=== PATIENT | female | born 2000 | race Caucasian/White ===

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

== ENCOUNTER 2021-10-13 14:19 | Inpatient (IN) | payer OTHER ==
[~2021-10-13] VITALS: Ht 175.3 cm; Wt 90.7 kg
--- NOTE | 2021-10-14 10:24 | PR ---
[facility] [address] [facility] [address] [place], [place] [address] Signed Progress Notes IP Datetime Report Generated by CPN: 10/14/2021 10:24 PROGRESS NOTES: [id number] Impression: Normal Progression of Labor Procedures: Artificial ROM Plan: Continue Present Management; Anticipate Vaginal Delivery VITAL SIGNS: [id number] Vital Signs: Reviewed; Within Normal Limits EXAM: [id number] Dilatation: 2.0 Effacement: 90 Station: -2 Contractions: irregular MEMBRANES: [id number] Membranes Status: Ruptured Comments: Tolerating contractions well using tub. PIH Panel normal and BP normal. Continue monitoring. FETUS A: [id number] FHR Baseline: 150 Variability: Moderate 6-25bpm Accelerations: 10X10 Decelerations: None FHR Category: Category I Presentation: Vertex FETUS B: [id number] Signing Physician: June Silvestre MD Copies: ~ *Electronically Signed* 10/14/21 [facility] JUNE SILVESTRE MD PATIENT NAME: YANY CAVAZOS PROGRESS NOTE DATE OF : 01 PHYSICIAN: JUNE SILVESTRE MD RPT #: [id number] REPORT IS CONFIDENTIAL AND NOT TO BE RELEASED WITHOUT AUTHORIZATION
--- NOTE | 2021-10-14 13:27 | PR ---
[facility] [address] [facility] [place], [place] [address] Signed Progress Notes IP Datetime Report Generated by CPN: 10/14/2021 13:27 PROGRESS NOTES: [id number] Impression: Normal Progression of Labor Procedures: Artificial ROM Plan: Continue Present Management; Anticipate Vaginal Delivery VITAL SIGNS: [id number] Vital Signs: Reviewed; Within Normal Limits EXAM: [id number] Dilatation: 4.0 Effacement: 90 Station: -2 Contractions: irregular MEMBRANES: [id number] Membranes Status: Ruptured Comments: Comfortable with Epidural Will continue monitoring. FETUS A: [id number] FHR Baseline: 150 Variability: Moderate 6-25bpm Accelerations: 10X10 Decelerations: None FHR Category: Category I Presentation: Vertex FETUS B: [id number] Signing Physician: June Silvestre MD Copies: ~ *Electronically Signed* 10/14/21 1327 JUNE SILVESTRE MD PATIENT NAME: YANY CAVAZOS PROGRESS NOTE DATE OF : 01 PHYSICIAN: JUNE SILVESTRE MD RPT #: [id number] REPORT IS CONFIDENTIAL AND NOT TO BE RELEASED WITHOUT AUTHORIZATION
--- NOTE | 2021-10-15 09:55 | PR ---
[facility] [address] [facility] [place] [address] Signed PP Progress Notes Datetime Report Generated by CPN: 10/15/2021 09:54 SUBJECTIVE: [id number] Pain: Within Normal Limits Nausea/Vomiting: Denies Vital Signs: [id number] Vital Signs: Reviewed; Within Normal Limits Notable Details: PP Hgb/Hct = 8.9/26.6 Abdomen/Uterus: Normal Lochia: Normal Extremities: Normal IMPRESSION/PLAN/PROCEDURES: [id number] Impression: Normal Progression Other Impression: PP Anemia Plan: Continue Present Management Procedures: None Progress Notes: Doing well, still some perineal pain. Bleeding slightly above average, but asymptomatic. Will continue monitoring Signing Physician: June Silvestre MD Copies: ~ *Electronically Signed* 10/15/21 0954 JUNE SILVESTRE MD PATIENT NAME: YANY CAVAZOS PROGRESS NOTE DATE OF : 01 PHYSICIAN: JUNE SILVESTRE MD RPT #: [id number] REPORT IS CONFIDENTIAL AND NOT TO BE RELEASED WITHOUT AUTHORIZATION
--- NOTE | 2021-10-16 12:26 | PR ---
[facility] [address] [place], [place] [address] Signed PP Progress Notes Datetime Report Generated by CPN: 10/16/2021 12:26 SUBJECTIVE: [id number] Pain: Within Normal Limits Nausea/Vomiting: Denies Vital Signs: [id number] Vital Signs: Reviewed; Within Normal Limits Notable Details: PP Hgb/Hct = 8.9/26.6 Abdomen/Uterus: Normal Lochia: Normal Extremities: Normal IMPRESSION/PLAN/PROCEDURES: [id number] Impression: Normal Progression Other Impression: PP Anemia Plan: Discharge Procedures: None Progress Notes: Doing well, without complaint, ready to go home, but worried about postpartukmn depression since previously had anxiety/depression and beginning to feel anxious again. Discussed PP Depression; risks vs benefits of medication, may need counselling -> will start on Bupropion XL. Call if increasing symptoms. Signing Physician: June Silvestre MD Copies: ~ *Electronically Signed* 10/16/21 1226 JUNE SILVESTRE MD PATIENT NAME: YNAY CAVAZOS PROGRESS NOTE DATE OF : 01 PHYSICIAN: JUNE SILVESTRE MD RPT #: [id number] REPORT IS CONFIDENTIAL AND NOT TO BE RELEASED WITHOUT AUTHORIZATION
== END 2021-10-16 15:50 | disposition home or self-care (01) | DRG 806 ==
LOC: FBC 10-14 00:06
PROVIDERS: ADMIT General Practice; ATTEND General Practice
PROC: 10E0XZZ Delivery of Products of Conception, External Approach (ICD-10-PCS; principal; 2021-10-14)
PROC: 10907ZC Drainage of Amniotic Fluid, Therapeutic from Products of Conception, Via Natural or Artificial Opening (ICD-10-PCS; 2021-10-14)
PROC: 3E0P7VZ Introduction of Hormone into Female Reproductive, Via Natural or Artificial Opening (ICD-10-PCS; 2021-10-14)
PROC: 0HQ9XZZ Repair Perineum Skin, External Approach (ICD-10-PCS; 2021-10-14)
PROC: 3E0R3BZ Introduction of Anesthetic Agent into Spinal Canal, Percutaneous Approach (ICD-10-PCS; 2021-10-14)
PROC: 00HU33Z Insertion of Infusion Device into Spinal Canal, Percutaneous Approach (ICD-10-PCS; 2021-10-14)
PROC: 3E0334Z Introduction of Serum, Toxoid and Vaccine into Peripheral Vein, Percutaneous Approach (ICD-10-PCS; 2021-10-16)
DX: O69.1XX0 Labor and delivery complicated by cord around neck, with compression, not applicable or unspecified (principal); D62 Acute posthemorrhagic anemia; Z37.0 Single live birth; Z3A.39 39 weeks gestation of pregnancy; Z20.822 Contact with and (suspected) exposure to COVID-19; O90.81 Anemia of the puerperium; O70.0 First degree perineal laceration during delivery; Z23 Encounter for immunization; O26.893 Other specified pregnancy related conditions, third trimester; Z67.11 Type A blood, Rh negative; Z79.899 Other long term (current) drug therapy
CPT/HCPCS: 01960; 36415; 82565; 82570; 83030; 84156; 84450; 84520; 84550; 85027; 86850; 86900; 86901; 87502; A9270; J2590; J2790; J2795; J3010; U0003

== ENCOUNTER 2024-02-14 18:54 | Emergency (ER) | payer OTHER ==
[~2024-02-14] VITALS: Ht 175.3 cm; Wt 100.5 kg
[~2024-02-14 18:54] MED LIST: LO-DOSE ASPIRIN81 MG PO; MAGNESIUM OXID400 M1 PO; METOCLOPRAMIDE10 MG PO
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
[2024-02-14] MEDS ORDERED: LORazepam 2 MG/ML VIAL IV ONE (19:15)
[2024-02-14] MEDS ORDERED: ACETAMINOPHEN 325 MG TAB PO ONE (19:15)
[2024-02-14] MEDS ORDERED: TRAMADOL HCL50 MG PO (19:16)
[2024-02-14] MEDS ORDERED: GABAPENTIN300 MG PO (19:16)
[2024-02-14 19:22] LABS: BASOPHILS 0.6 % (0-2); EOSINOPHILS 1.5 % (0-6); HEMATOCRIT 39.1 % (35.0-50.0); HEMOGLOBIN 12.7 g/dL (12.0-18.0); LYMPHOCYTES 25.2 % (24-44); MCH 25.9 (27-36); MCHC 32.6 g/dl (30-36); MCV 79.6 fl (81-99); MONOCYTES 7.9 % (0-12); NEUTROPHILS 64.8 % (39-80); PLATELET COUNT 286 K/uL (140-440); RBC 4.91 M/ul (4.3-5.7); RDW 17.5 (10.5-15.0)
[2024-02-14] MEDS ORDERED: SODIUM CHLORIDE 0.9% 1,000 ML IV ONE (19:30)
[2024-02-14 19:40] LABS: ACETAMINOPHEN 0 ug/mL (10-30); ALBUMIN 3.7 g/dL (3.4-5.0); ALCOHOL, MEDICAL <3 ng/dL (<3); ALKALINE PHOSPHATASE 85 U/L (46-116); ALT (SGPT) 69 U/L (14-59); ANION GAP 10.6 (7-21); AST (SGOT) 30 U/L (15-37); BILIRUBIN, TOTAL 0.5 ng/dL (0.2-1.0); BUN/CREATININE RATIO 9.21 (6.0-28.6); CALCIUM 8.9 mg/dL (8.5-10.1); CARBON DIOXIDE 28 mmol/L (21-32); CHLORIDE 102 mmol/L (98-107); CREATININE, SERUM 0.76 mg/dL (0.55-1.02); GLOMERULAR FILTRATION RATE,EST 114 mL/min (>60); POTASSIUM 3.6 mmol/L (3.5-5.1); PROTEIN, TOTAL 7.8 g/dL (6.4-8.2); SALICYLATE 1.3 mg/dL (2.8-20.0); TSH, 3RD GENERATION 2.379 uIU/mL (0.358-3.740); UREA NITROGEN 7 mg/dL (7-18)
[2024-02-14 19:43] LABS: PH, VENOUS 7.378 (7.31-7.41)
[2024-02-14 19:55] LABS: BILIRUBIN, URINE NEGATIVE (negative); BLOOD/HGB, URINE NEGATIVE (Negative); KETONE, URINE NEGATIVE (Negative); LEUK ESTERASE, URINE NEGATIVE (negative); NITRITE, URINE NEGATIVE (negative); PH, URINE 6.5 (5-7)
[2024-02-14 20:10] LABS: AMPHETAMINES, URINE NEGATIVE (NEGATIVE); BARBITURATES, URINE NEGATIVE (NEGATIVE); BENZODIAZEPINE, URINE NEGATIVE (NEGATIVE); BUPRENORPHINE, URINE NEGATIVE (NEGATIVE); CANNABINOID, URINE POSITIVE (NEGATIVE); COCAINE, URINE NEGATIVE (NEGATIVE); ECSTASY, URINE NEGATIVE (NEGATIVE); FENTANYL, URINE NEGATIVE (NEGATIVE); METHADONE, URINE NEGATIVE (NEGATIVE); OPIATES, URINE NEGATIVE (NEGATIVE); OXYCODONE, URINE NEGATIVE (NEGATIVE); PHENCYCLIDINE, URINE NEGATIVE (NEGATIVE)
[2024-02-14] MEDS ORDERED: MAGNESIUM SULFATE 2 GM/50 ML BAG IV ONE (20:30)
[2024-02-15] MEDS ORDERED: ondansetron HCL 4 MG/2 ML VIAL IV ONE (00:15)
[2024-02-15 01:31] LABS: ACETAMINOPHEN 0 ug/mL (10-30); ALBUMIN 3.3 g/dL (3.4-5.0); ALBUMIN/GLOBULIN RATIO 0.89 (1.1-2.4); ALKALINE PHOSPHATASE 79 U/L (46-116); ALT (SGPT) 61 U/L (14-59); ANION GAP 10.4 (7-21); AST (SGOT) 25 U/L (15-37); BILIRUBIN, TOTAL 0.5 ng/dL (0.2-1.0); BUN/CREATININE RATIO 10.29 (6.0-28.6); CALCIUM 8.2 mg/dL (8.5-10.1); CARBON DIOXIDE 27 mmol/L (21-32); CHLORIDE 104 mmol/L (98-107); CREATININE, SERUM 0.68 mg/dL (0.55-1.02); GLOMERULAR FILTRATION RATE,EST 126 mL/min (>60); POTASSIUM 3.4 mmol/L (3.5-5.1); UREA NITROGEN 7 mg/dL (7-18)
[2024-02-15 05:54] VITALS: BP 122/86
--- NOTE | 2024-02-15 17:06 | EKG ---
[facility] [address] [facility] [place] [address] Signed Normal sinus rhythm Normal ECG When compared with ECG of 18-SEP-2023 17:34, No significant change was found Confirmed by Luis Fernando Jordan MD ([id number]) on 02/15/2024 5:06:11 PM Electronically Signed By: LUIS FERNANDO JORDAN MD 02/15/24 1706 PATIENT NAME: YANY CAVAZOS Electrocardiogram DATE OF : 01 PHYSICIAN: LUIS FERNANDO JORDAN MD REPORT #: [id number] REPORT IS CONFIDENTIAL AND NOT TO BE RELEASED WITHOUT AUTHORIZATION
== END 2024-02-15 05:54 | disposition home or self-care (01) ==
LOC: ED 18:54
PROVIDERS: Family Medicine
DX: F32.A Depression, unspecified (principal); T40.422A Poisoning by tramadol, intentional self-harm, initial encounter; T42.6X2A Poisoning by other antiepileptic and sedative-hypnotic drugs, intentional self-harm, initial encounter; T39.312A Poisoning by propionic acid derivatives, intentional self-harm, initial encounter; F17.200 Nicotine dependence, unspecified, uncomplicated; Z88.8 Allergy status to other drugs, medicaments and biological substances; Z79.899 Other long term (current) drug therapy
CPT/HCPCS: 36415; 80053; 80307; 81003; 82803; 83735; 84443; 84703; 85025; 93005; 93010; 96374; 96375; 99285-25; A9270; G0480; J2060; J2405; J3475; J7030; U0002

== ENCOUNTER 2024-03-02 21:58 | Observation (INO) | payer OTHER ==
[~2024-03-02] VITALS: Ht 175.3 cm; Wt 99.7 kg
[~2024-03-02 21:58] MED LIST changes: +GABAPENTIN300 MG PO; +TRAMADOL HCL50 MG PO
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
[2024-03-02] MEDS ORDERED: ondansetron HCL 4 MG/2 ML VIAL IV ONE ×2 (22:15→23:45)
[2024-03-02] MEDS ORDERED: SODIUM CHLORIDE 0.9% 500 ML IV ONE (22:15)
[2024-03-02 22:23] LABS: HEMATOCRIT 48.1 % (35.0-50.0); HEMOGLOBIN 15.6 g/dL (12.0-18.0); MCH 25.8 (27-36); MCHC 32.5 g/dl (30-36); MCV 79.4 fl (81-99); PLATELET COUNT 407 K/uL (140-440); RBC 6.05 M/ul (4.3-5.7); RDW 16.6 (10.5-15.0)
[2024-03-02] MEDS ORDERED: FAMOTIDINE 20 MG/ 2 ML VIAL IV ONE (22:30)
[2024-03-02] MEDS ORDERED: HYDROmorphone HCL 1 MG/ML SYR IV PRN (22:30)
[2024-03-02] MEDS ORDERED: LACTATED RINGER'S 1,000 ML IV ONE (22:30)
[2024-03-02 22:41] LABS: ALBUMIN 4.7 g/dL (3.4-5.0); BILIRUBIN, TOTAL 0.5 ng/dL (0.2-1.0); BUN/CREATININE RATIO 15.96 (6.0-28.6); CALCIUM 10.4 mg/dL (8.5-10.1); CREATININE, SERUM 1.19 mg/dL (0.55-1.02); MAGNESIUM 1.3 mg/dL (1.8-2.4); PROTEIN, TOTAL 9.4 g/dL (6.4-8.2)
[2024-03-02 22:46] LABS: EOSINOPHILS, MANUAL DIFF 1; LYMPHOCYTES, MANUAL DIFF 4; MONOCYTES, MANUAL DIFF 1; NEUTROPHILS, MANUAL DIFF 94
[2024-03-02] MEDS ORDERED: CEFTRIAXONE/SODIUM CHLORIDE 2 GM/100 ML PIGGYBACK IV ONE (23:15)
[2024-03-03] VITALS (12 sets, daily range): BP systolic 120–132; BP diastolic 65–77
[2024-03-03 00:05] LABS: LACTIC ACID, BLOOD 2.2 mmol/L (0.4-2.0)
[2024-03-03 00:32] LABS: BILIRUBIN, URINE NEGATIVE (negative); BLOOD/HGB, URINE NEGATIVE (Negative); KETONE, URINE TRACE (Negative); LEUK ESTERASE, URINE NEGATIVE (negative); NITRITE, URINE NEGATIVE (negative); PH, URINE 6.5 (5-7)
[2024-03-03 00:45] LABS: AMPHETAMINES, URINE NEGATIVE (NEGATIVE); BARBITURATES, URINE NEGATIVE (NEGATIVE); BENZODIAZEPINE, URINE NEGATIVE (NEGATIVE); BUPRENORPHINE, URINE NEGATIVE (NEGATIVE); CANNABINOID, URINE POSITIVE (NEGATIVE); COCAINE, URINE NEGATIVE (NEGATIVE); ECSTASY, URINE NEGATIVE (NEGATIVE); FENTANYL, URINE NEGATIVE (NEGATIVE); METHADONE, URINE NEGATIVE (NEGATIVE); OPIATES, URINE POSITIVE (NEGATIVE); OXYCODONE, URINE NEGATIVE (NEGATIVE); PHENCYCLIDINE, URINE NEGATIVE (NEGATIVE)
[2024-03-03] MEDS ORDERED: LACTATED RINGER'S 1,000 ML IV SCH ×3 (01:00→11:15)
[2024-03-03] MEDS ORDERED: PROCHLORPERAZINE EDISYLATE 10 MG/2 ML VIAL IV ONE (02:00)
--- NOTE | 2024-03-03 02:59 | NUR ---
PT ADMITTED TO ROOM 114 @ 0235. A/O, RA, SELF MOVED FROM STRETCHER TO BED. VS COMPLETED. ASSESSMENT COMPLETED, UNREMARKABLE. STATES SHE THINKS IT WAS FOOD POISONING. IS FEELING MUCH BETTER SHE STATES. LIVES AT HOME WITH BOYFRIEND, A 2.5 MONTH OLD BABY AND 2.5 YEAR OLD TODDLER. IV INFUSING PER MARS. DID RECEIVE REPORT NEAR 0235 FROM WALDO IN ED. XRAY AWARE OF NEED FOR CXR. WALDO RN STATED THAT PAIN MAKES PT NAUSEATED. HR PER TELE READING 96. STATES SHE SMOKES POT, BUT OCCASSIONAL DUE TO HER CHILDREN, "NO TIME". PT AWARE SHE NEEDS TO CALL BEFORE GETTING UP. STATES UNDERSTANDING.
--- NOTE | 2024-03-03 04:22 | NUR ---
RESTING, EYES CLOSED, NO S/SX DISTRESS, NO EMESIS. IVF INFUSING W/O PROBLEMS. REPOSITIONS SELF IN BED
[2024-03-03 05:34] LABS: BASOPHILS 0.4 % (0-2); HEMATOCRIT 39.6 % (35.0-50.0); HEMOGLOBIN 12.6 g/dL (12.0-18.0); LYMPHOCYTES 2.4 % (24-44); MCH 25.6 (27-36); MCHC 31.8 g/dl (30-36); MCV 80.3 fl (81-99); MONOCYTES 2.7 % (0-12); NEUTROPHILS 94.5 % (39-80); PLATELET COUNT 272 K/uL (140-440); RBC 4.93 M/ul (4.3-5.7); RDW 16.6 (10.5-15.0)
--- NOTE | 2024-03-03 05:38 | NUR ---
Awakens easily, on room air, no further c/o pain or n/v. Cooperative with vitals. no void since admit, denies need for urination. IVF infusing LAC w/o problems. turns and repositions self in bed
[2024-03-03 05:51] LABS: ALBUMIN 3.3 g/dL (3.4-5.0); ALBUMIN/GLOBULIN RATIO 0.87 (1.1-2.4); ANION GAP 14.2 (7-21); BILIRUBIN, TOTAL 0.4 ng/dL (0.2-1.0); BUN/CREATININE RATIO 17.1 (6.0-28.6); CALCIUM 8.7 mg/dL (8.5-10.1); CREATININE, SERUM 0.76 mg/dL (0.55-1.02); POTASSIUM 4.2 mmol/L (3.5-5.1); PROTEIN, TOTAL 7.1 g/dL (6.4-8.2)
--- NOTE | 2024-03-03 07:10 | NUR ---
REPORT RECEIVED FROM HEAD WORKER RN JUNO. PATIENT IS AWAKE AND RESPONDS APPROPRIATELY TO RN. PATIENT STATED NO FURTHER NEEDS AT THIS TIME. CALL LIGHT AND PERSONAL BELONGINGS ARE WITHIN REACH.
[2024-03-03] MEDS ORDERED: OXYCODONE HCL 5 MG TAB PO PRN (07:30)
[2024-03-03] MEDS ORDERED: LACTATED RINGER'S 1,000 ML IV ONE (07:45)
--- NOTE | 2024-03-03 08:00 | NUR ---
PRN OXYCODONE ADMINISTERED FOR PAIN RATED 8/10 IN THE ABDOMEN AND HAS A MIGRAINE. 1 L LR BOLUS STARTED AT THIS TIME. LR BOLUS TO INFUSE OVER AN HOUR. IV DRESSING IS CLEAN, DRY, AND INTACT. FULL ASSESSMENT COMPLETE AND DOCUMENTED IN THE CHART. PATIENT IS ALERT AND ORIENTED TIMES FOUR. PATIENT IS ON TELEMETRY NUMBER 6 AND IS IN SINUS TACHYCARDIA. HR IS 121. CARDIAC AND PEDAL PULSES ARE STRONG BILATERALLY. PATIENT IS ON A REGULAR DIET AND BOWEL TONES ARE ACTIVE IN ALL FOUR QUADRANTS. PATIENT WITH NAUSEA AND SMALL AMOUNT OF EMESIS. MD NOTIFIED AND TO PUT IN ORDERS. PATIENT IS ON ROOM AIR AND LUNG SOUNDS ARE CLEAR BILATERALLY. SKIN WITH SEVERAL TATTOOS AND SCATTERED SCARS. PATIENT WITH BREAKFAST TRAY SITTING ON THE BEDSIDE TABLE. PATIENT WITH NO FURTHER NEEDS AT THIS TIME. CALL LIGHT AND PERSONAL BELONGINGS ARE WITHIN REACH.
[2024-03-03] MEDS ORDERED: ONDANSETRON 4 MG TAB ODT SL PRN (08:15)
--- NOTE | 2024-03-03 08:21 | NUR ---
PATIENT CALLED FOR ASISTANCE USING THE RESTROOM, TELE WAS IN NORMAL SINUS RYTHM BUT HAS A HIGHER HEART RATE. CHARGE NURSE HAS BEEN AWARE. PATIENT COMPLAINED OF PAIN AND DIARRHEA. PAIN LEVEL AT A 8. NURSE HAS BEEN NOTFIED.
[2024-03-03] MEDS ORDERED: LORazepam 2 MG/ML VIAL IV ONE (08:30)
--- NOTE | 2024-03-03 09:40 | NUR ---
IV FLUIDS RESTARTED. PATIENT WITH A VISITOR SITTING ON THE BED WITH THE PATIEBNT. PATIENT STATED NO FURTHER NEEDS AT THIS TIME. CALL LIGHT AND PERSONAL BELONGINGS ARE WITHIN REACH.
--- NOTE | 2024-03-03 09:45 | NUR ---
MED REC COMPLETE
[2024-03-03] MEDS ORDERED: ondansetron HCL 4 MG/2 ML VIAL IV PRN (11:15)
[2024-03-03] MEDS ORDERED: PHARMACY RENAL DOSE ADJUSTMENT 1 DOSE MISC PO SCH (12:00)
--- NOTE | 2024-03-03 12:20 | NUR ---
PATIENT IS LYING IN BED. LR MAINTENANCE FLUIDS STARTED AT 125 ML/HR. PATIENT STATES THE PAIN IS NOT GETTING ANY BETTER. PATIENT REQUESTING PAIN MEDICATION AT THIS TIME. PATIENT WITH HER SIGNIFICANT OTHER SITTING IN THE CHAIR AT BEDSIDE. PATIENT STATED NO FURTHER NEEDS AT THIS TIME. CALL LIGHT AND PERSONAL BELONGINGS ARE WITHIN REACH.
[2024-03-03] MEDS ORDERED: MORPHINE SULFATE 4 MG/ML VIAL IV PRN (12:30)
--- NOTE | 2024-03-03 12:30 | NUR ---
NOTIFIED OF PATIENT PAIN NOT GETTING BETTER AFTER THE PATIENT GOT PO OXYCODONE AT 0750. GAVE TELEPHONE ORDER TO DISCONTINUE PO OXYCODONE ORDER AND TO ADD 4 MG IV MORPHINE EVERY FOUR HOURS PRN FOR PAIN. RN PUT IN ORDERS AT THIS TIME. WITH NO FURTHER ORDERS. CALL ENDED.
--- NOTE | 2024-03-03 13:00 | NUR ---
PATIENT IS LYING IN BED. IV FLUSHED WITH 10 ML NORMAL SALINE AND 4 MG IV MORPHINE ADMINISTERED PER THE EMAR. PATIENT AAMBULATED TO THE BATHROOM WITH SBA. PATIENT HAD DIARRHEA AT THIS TIME. PATIENT AMBULTATED BACK TO THE BED AND GIVEN A FRESH WARM PACK AND A BEEF BROTH AT THE BEDSIDE. PATIENT UNABLE TO VOID. ALLIE IS BLADDER SCANNING THE PATIENT NOW. PATIENT WITH HER SIGNIFICANT OTHER SITTING IN THE CHAIR AT THIS TIME. PATIENT STATED NO FURTHER NEEDS. CALL LIGHT AND PERSONAL BELONGINGS ARE WITHIN REACH.
--- NOTE | 2024-03-03 13:11 | NUR ---
BLADDER SCAN COMPLETE AND SHOWED NO URINE IN THE BLADDER AT THIS TIME. PATIENT DOES NOT FEEL THE URGE TO URINATE. NOTIFIED OF THE PATIENT NOT BEING ABLE TO VOID ON OUR SHIFT. MD GAVE TELEPHONE ORDER TO PUT IN RENAL ULTRASOUND FOR ANURIA. MD WITH NO FURTHER QUESTIONS AND NO NEW ORDERS. CALL ENDED.
--- NOTE | 2024-03-03 14:12 | NUR ---
PATIENT WITH PAIN RATED 6/10 IN THE ABDOMEN THAT RADIATES TO THE BACK. PATIENT WITH A HOT PACK ON THE BEDSIDE TABLE. PATIENT IS NOT REQUESING PAIN MEDICATION AT THIS TIME. BOWEL TONES ARE ACTIVE IN ALL FOUR QUADRANTS. ABDOMEN TENDER TO PALPATION. REDNESS ON THE ABDOMEN NOTED DUE TO THE HOT PACK. CARDIAC WITH NORMAL S1 AND S2 ON AUSCULTATION. PATIENT IS ON TELEMETRY NUMBER 6 AND IN NORMAL SINUS RHYTHM. HR IS 96. PATIENT STATED NO FURTHER NEEDS AT THIS TIME. CALL LIGHT AND PERSONAL BELONGINGS ARE WITHIN REACH.
--- NOTE | 2024-03-03 14:16 | NUR ---
MD NOTIFIED OF THE PATIENTS PAIN RADIATING TO THE PATIENT BACK. MD NOTIFIED OF OF THE RENAL ULTRASOUND BEING NEGATIVE. MD WITH NO NEW ORDERS AT THIS TIME.
--- NOTE | 2024-03-03 14:26 | NUR ---
Patient has not been eating much. Iv'e been giving patient chocolate ensures. She seems to like them. Nurse has been notified about the ensures and patient intake.
--- NOTE | 2024-03-03 17:20 | NUR ---
Patient is currently sleeping, call light has been placed within reach
--- NOTE | 2024-03-03 18:01 | NUR ---
PATIENT RATED PAIN 7/10 WHEN RN ASKED PATIENT. PATIENT IS NOT REQUESTING PAIN MEDICATION AT THIS TIME. PATIENT STATED NO FURTHER NEEDS, CALL LIGHT AND PERSONAL BELONGINGS ARE WITHIN REACH.
--- NOTE | 2024-03-03 19:20 | NUR ---
RECEIVED REPROT FROM DAY SHIFT RN. PATIENT IS RESTING IN BED. PATIENT SIGNIFICANT OTHER CAN BED HEARD IN THE RESTROOM VOMITING. EDUCATED PATIENT AND PATIENTS SIGNIFICANT OTHER THAT HE NEEDED TO GO HOME AND REST. PATIENT AGREES. PATIENT DENIES ANY PAIN OR NAUSEA AT THIS TIME. CALL LIGHT IN REACH.
--- NOTE | 2024-03-03 21:11 | NUR ---
PATIENTS VITALS TAKEN AND RECORDED. PATIENT CONTINUES TO HAVE NO OUTPUT. PATIENTS IV INFUSING PER ORDER. PATIENT RATES ABD PAIN AT A 5/10. PATIENT HAS NO AVALABLE PAIN MEDICATION AT THIS TIME. PATIENT EDUCATED ON PAIN MEDICATION. PATIENT PROVIDED WARM PACK FOR ABD. PATIENT DENIES ANY FURTHER NEEDS. CALL LIGHT IN REACH.
--- NOTE | 2024-03-03 22:20 | NUR ---
PATIENT REPORTS 8/10 ABD PAIN, PRN PAIN MEDICATION GIVEN PER ORDER. PATIENT HAD 300ML EMESIS. PATIENT REPORTS NAUSEA, PRN NAUSEA MEDICATION GIVEN PER ORDER. PATIENT PROVIDED WARM PACK FOR ABD. PATIENT DENIES ANY FURTHER NEEDS. CALL LIGHT IN REACH.
--- NOTE | 2024-03-04 00:11 | NUR ---
PATIENT IS RESTING IN BED WITH EYES CLOSED, RR 15. TELE #6, NSR, HR IS 74. CALL LIGHT IN REACH. IV INFUSING PER ORDER.
[2024-03-04 02:19] VITALS: BP 128/80
--- NOTE | 2024-03-04 02:46 | NUR ---
PATIENTS VITALS TAKEN AND RECORDED. PATIENT UP TO THE BR AND PATIENT ABLE TO VOID. PATIENT IS BACK IN BED RESTING. PATIENTS INTAKE AND OUTPUT RECORDED. PATIENTS IV INFUSING PER ORDER. PATIENT RATES PAIN AT A 7/10, PRN PAIN MEDICATION GIVEN PER ORDER. PATIENT DENIES ANY NAUSEA. WARM PACK PROVIDED FOR PATIENTS ABD. CALL LIGHT IN REACH. NO FURTHER NEEDS NOTED.
[2024-03-04 02:48] VITALS: BP 128/80
--- NOTE | 2024-03-04 04:13 | NUR ---
PATIENT IS RESTING IN BED WITH EYES CLOSED, RR 16. CALL LIGHT IN REACH. IV INFUSING PER ORDER. TELE #6 AND HR IS 63. NAD NOTED. CALL LIGHT IN REACH.K
[2024-03-04 05:15] VITALS: BP 117/65
[2024-03-04 05:23] LABS: BASOPHILS 0.8 % (0-2); EOSINOPHILS 3.1 % (0-6); HEMATOCRIT 32.9 % (35.0-50.0); HEMOGLOBIN 10.8 g/dL (12.0-18.0); LYMPHOCYTES 28.6 % (24-44); MCH 26.1 (27-36); MCHC 32.8 g/dl (30-36); MCV 79.6 fl (81-99); MONOCYTES 14.3 % (0-12); NEUTROPHILS 53.2 % (39-80); PLATELET COUNT 203 K/uL (140-440); RBC 4.14 M/ul (4.3-5.7); RDW 16.4 (10.5-15.0)
[2024-03-04 05:30] LABS: ANION GAP 8.9 (7-21); BUN/CREATININE RATIO 8.33 (6.0-28.6); CALCIUM 8.4 mg/dL (8.5-10.1); CREATININE, SERUM 0.72 mg/dL (0.55-1.02); MAGNESIUM 1.6 mg/dL (1.8-2.4); POTASSIUM 3.9 mmol/L (3.5-5.1)
--- NOTE | 2024-03-04 05:49 | NUR ---
PATIENTS VITALS TAKEN AND RECORDED. INTAKE AND OUTPUT RECORDED. PATIENT RATES PAIN AT A 5/10 AND DENIES THE NEED FOR PAIN MEDICATION. PATIENT REQUESTED AND PROVIDED WARM PACK FOR ABD. PATIENT DENIES ANY NAUSEA. IV INFUSING PER ORDER. PATIENT DENIES ANY FURTHER NEEDS. IV INFUSING PER ORDER. CALL LIGHT IN REACH.
[2024-03-04 05:51] VITALS: BP 117/65
--- NOTE | 2024-03-04 07:58 | NUR ---
UR CLINICAL REVIEW: [facility] OBS CRITERIA FOR GASTROENTERITIS ODS EOCCO OBS 03/03/24 @ 0758 ORDER MATCHES REG NO AUTH REQUIRED FOR OBS VISIT PER EOC[facility] GUIDELINES DISCHARGE TO HOME WHEN STABLE 03/05/24
--- NOTE | 2024-03-04 08:01 | NUR ---
PT SLEEPING AT TIME OF SHIFT REPORT, IN ROOM, LEFT UNDISTURBED. SHE IS AWAKE NOW AFTER DR LEWIS VISIT STATES HE WILL MOVE HER TO PO PAIN MEDS AND ENCOURAGE REGULAR DIET INTAKE. FRESH H20 TO BEDSIDE BREAKFAST SERVED PT DENIES OTHER NEEDS OF.
[2024-03-04] MEDS ORDERED: OXYCODONE HCL 5 MG TAB PO PRN (08:30)
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
[2024-03-04] MEDS ORDERED: ENOXAPARIN SODIUM 40 MG/0.4 ML SYR SUB-Q SCH (09:00)
[2024-03-04 09:34] VITALS: BP 135/77
--- NOTE | 2024-03-04 10:00 | NUR ---
PT C/O NUMBNESS IN HER LEG CONTINUES IN BED AT THIS TIME. PT INSTRUCTED TO AMBULATE THE HALLS WITH SBA THEN RETURN TO RECLINER INSTEAD OF THE BED. DR LEWIS NOTIFIED OF PT SPOTTING AND C/O LEG NUMBNESS
--- NOTE | 2024-03-04 10:04 | NUR ---
PT AMBULATED IN HALLS 1 LAP AROUND RN STATION. SBA. NOW UP TO CHAIR. WARM BLANKETS AND ICE PROVIDED. SHOWER SET UP AND PT WILL LET US KNOW WHEN READY. PT DECLINES FOOD AT THIS TIME. DENIES ANY NEEDS AT THIS TIME, CALL LIGHT IN REACH
--- NOTE | 2024-03-04 10:33 | NUR ---
PT AGREES HER LEG IS BETTER. SHE IS UP IN THE CHAIR AT THIS TIME WATER AND NEEDED ITEMS IN REACH SHE IS USING HER PHONE WITHOUT C/O. WHEN ASKED REPORTS ABD PAIN 6-7/10
[2024-03-04 10:45] VITALS: BP 135/77
--- NOTE | 2024-03-04 10:45 | NUR ---
SITTING UP IN RECLINER. STATES SHE LIVES IN APARTMENT WITH CHERYL. DENIES USE OF ANY DME. STATES HER PHONE NUMBER HAS CHANGED, IT IS NOW [phone]. WILL UPDATE WITH REGISTRATION. PATIENT DOES NOT DRIVE, HER FIANCE ASSISTS HER WITH TRANSPORTATION. SHE DOES NOT HAVE A PCP. CALLED [facility], NOT ASSIGNED TO THEIR CLINIC. CALLED [facility] [employer] [facility] WAS TOLD THIS IS HER ASSIGNED CLINIC THROUGH [facility], THEY HAVE NO RECORD OF PATIENT BEING ASSIGNED TO THEIR CLINIC. CALLED [facility], INFORMATION PROVIDED AND NOTES FAXED TO THEIR CLINIC TO ESTABLISH PCP PER PATIENT REQUEST TO HAVE LOCAL PCP. THEY WILL CALL PATIENT AND FINISH SETTING UP PCP IF THEY ARE ABLE TO ACCEPT HER IN THEIR CLINIC. PATIENT NOTIFIED. PATIENT DENIES ANY FINANCIAL HARDSHIP AND STATES SHE HAS NO OTHER NEEDS AT THIS TIME.
--- NOTE | 2024-03-04 11:31 | NUR ---
H&P FAXED TO [facility] TO SET UP PRIMARY CARE PER PATIENT REQUEST FOR PCP. THEY WILL CALL HER TO ESTABLISH CARE IF THEY ARE ABLE TO ACCEPT HER A PATIENT.
--- NOTE | 2024-03-04 11:37 | NUR ---
PT IS BACK IN BED RESTING SHE IS TEARFUL BECAUSE SIGNIFICANT OTHER HAS NOT BEEN BACK WITH HER CHILDREN. CLEAR ENSURE PROVIDED PT IS SIPPING ON IT NOW. DENIES NEEDS FROM THIS DIRECTOR AIRPORT
[2024-03-04] MEDS ORDERED: HYDROCODON-ACE1 EA10 PO ×2 (12:42)
[2024-03-04] MEDS ORDERED: ONDANSETRON ODT4 MG PO ×2 (12:43)
--- NOTE | 2024-03-04 12:45 | NUR ---
PT TO THE SHOWER FAMILY ARE PRESENT. DENIES NEED OF ANYTHING ELSE
== END 2024-03-04 13:31 | disposition home or self-care (01) ==
LOC: ED 21:58 → MS 21:59
PROVIDERS: Internal Medicine; ADMIT Student in an Organized Health Care Education/Training Program; ATTEND Student in an Organized Health Care Education/Training Program
DX: A05.9 Bacterial foodborne intoxication, unspecified (principal); F31.9 Bipolar disorder, unspecified; E86.0 Dehydration; E87.20 Acidosis, unspecified; Z79.899 Other long term (current) drug therapy; Z88.8 Allergy status to other drugs, medicaments and biological substances
CPT/HCPCS: 36415; 51798; 71045; 74177; 76770; 80048; 80053; 80307; 81003; 83605; 83690; 83735; 84703; 85025; 87040; 96361; 96372; 96375; 96376; 99285-25; A9270; G0378; J0696; J0780; J1170; J1650; J2060; J2270; J2405; J7040; J7121; Q9967; U0002

== ENCOUNTER 2024-04-15 20:44 | Emergency (ER) | payer OTHER ==
[~2024-04-15] VITALS: Ht 175.3 cm; Wt 104.6 kg
[~2024-04-15 20:44] MED LIST changes: +HYDROCODON-ACE1 EA10 PO; +ONDANSETRON ODT4 MG PO
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
[2024-04-15 21:09] LABS: BASOPHILS 0.5 % (0-2); EOSINOPHILS 3.6 % (0-6); HEMOGLOBIN 12.4 g/dL (12.0-18.0); LYMPHOCYTES 12.6 % (24-44); MCH 26.3 (27-36); MCHC 32.7 g/dl (30-36); MCV 80.3 fl (81-99); MONOCYTES 6.8 % (0-12); NEUTROPHILS 76.5 % (39-80); PLATELET COUNT 228 K/uL (140-440); RBC 4.73 M/ul (4.3-5.7); RDW 15.9 (10.5-15.0)
[2024-04-15] MEDS ORDERED: ondansetron HCL 4 MG/2 ML VIAL IV ONE (21:15)
[2024-04-15] MEDS ORDERED: CAPLYTA42 MG PO (21:15)
[2024-04-15] MEDS ORDERED: ONDANSETRON 4 MG TAB ODT SL ONE (21:15)
[2024-04-15] MEDS ORDERED: BUPROPION HCL100 M1 PO (21:15)
[2024-04-15 21:43] LABS: ACETAMINOPHEN 0 ug/mL (10-30); ALBUMIN 3.5 g/dL (3.4-5.0); ALCOHOL, MEDICAL <3 ng/dL (<3); ALKALINE PHOSPHATASE 73 U/L (46-116); ALT (SGPT) 30 U/L (14-59); ANION GAP 12.3 (7-21); AST (SGOT) 12 U/L (15-37); BILIRUBIN, TOTAL 0.1 ng/dL (0.2-1.0); BUN/CREATININE RATIO 9.43 (6.0-28.6); CALCIUM 8.7 mg/dL (8.5-10.1); CARBON DIOXIDE 28 mmol/L (21-32); CHLORIDE 103 mmol/L (98-107); CREATININE, SERUM 1.06 mg/dL (0.55-1.02); GLOMERULAR FILTRATION RATE,EST 76 mL/min (>60); POTASSIUM 3.3 mmol/L (3.5-5.1); PROTEIN, TOTAL 7.4 g/dL (6.4-8.2); SALICYLATE 1.6 mg/dL (2.8-20.0); TSH, 3RD GENERATION 2.782 uIU/mL (0.358-3.740); UREA NITROGEN 10 mg/dL (7-18)
[2024-04-15 22:37] LABS: BILIRUBIN, URINE NEGATIVE (negative); BLOOD/HGB, URINE NEGATIVE (Negative); KETONE, URINE NEGATIVE (Negative); LEUK ESTERASE, URINE NEGATIVE (negative); NITRITE, URINE NEGATIVE (negative)
[2024-04-15 22:50] LABS: AMPHETAMINES, URINE NEGATIVE (NEGATIVE); BARBITURATES, URINE NEGATIVE (NEGATIVE); BENZODIAZEPINE, URINE NEGATIVE (NEGATIVE); BUPRENORPHINE, URINE NEGATIVE (NEGATIVE); CANNABINOID, URINE POSITIVE (NEGATIVE); COCAINE, URINE NEGATIVE (NEGATIVE); ECSTASY, URINE POSITIVE (NEGATIVE); FENTANYL, URINE NEGATIVE (NEGATIVE); METHADONE, URINE NEGATIVE (NEGATIVE); OPIATES, URINE NEGATIVE (NEGATIVE); OXYCODONE, URINE NEGATIVE (NEGATIVE); PHENCYCLIDINE, URINE NEGATIVE (NEGATIVE)
[2024-04-16] MEDS ORDERED: ONDANSETRON 4 MG TAB ODT SL ONE (10:00)
[2024-04-16] MEDS ORDERED: hydrOXYzine pamoate 50 MG CAP PO ONE (10:00)
[2024-04-16 13:31] VITALS: BP 124/73
--- NOTE | 2024-04-18 18:54 | EKG ---
[facility] [address] [facility] [place] [address] Signed Normal sinus rhythm Normal ECG When compared with ECG of 14-FEB-2024 19:19, No significant change was found Confirmed by Luis Fernando Jordan MD ([id number]) on 04/18/2024 6:54:14 PM Electronically Signed By: LUIS FERNANDO JORDAN MD 04/18/241853 PATIENT NAME: YANY CAVAZOS Electrocardiogram DATE OF : [birth year] PHYSICIAN: LUIS FERNANDO JORDAN MD REPORT #: [id number] REPORT IS CONFIDENTIAL AND NOT TO BE RELEASED WITHOUT AUTHORIZATION
== END 2024-04-16 13:32 | disposition home or self-care (01) ==
LOC: ED 20:44
PROVIDERS: Family Medicine
DX: F31.9 Bipolar disorder, unspecified (principal); T43.592A Poisoning by other antipsychotics and neuroleptics, intentional self-harm, initial encounter; R11.0 Nausea; R42 Dizziness and giddiness; F17.200 Nicotine dependence, unspecified, uncomplicated; Z88.8 Allergy status to other drugs, medicaments and biological substances; Z79.899 Other long term (current) drug therapy
CPT/HCPCS: 36415; 80053; 80307; 81003; 83735; 84443; 84703; 85025; 93005; 93010; 99285; A9270; G0480

== ENCOUNTER 2024-05-13 13:10 | Emergency (ER) | payer OTHER ==
[~2024-05-13] VITALS: Ht 175.3 cm; Wt 101.0 kg
[~2024-05-13 13:10] MED LIST changes: +BUPROPION HCL100 M1 PO; +CAPLYTA42 MG PO
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
[2024-05-13 15:46] LABS: BASOPHILS 0.9 % (0-2); EOSINOPHILS 4.5 % (0-6); HEMATOCRIT 43.1 % (35.0-50.0); HEMOGLOBIN 14.2 g/dL (12.0-18.0); LYMPHOCYTES 29.3 % (24-44); MCV 81.7 fl (81-99); MONOCYTES 7.9 % (0-12); NEUTROPHILS 57.4 % (39-80); PLATELET COUNT 318 K/uL (140-440); RBC 5.28 M/ul (4.3-5.7); RDW 16.4 (10.5-15.0)
[2024-05-13 16:03] LABS: ALBUMIN 4.3 g/dL (3.4-5.0); ALBUMIN/GLOBULIN RATIO 0.96 (1.1-2.4); ANION GAP 13.3 (7-21); BILIRUBIN, TOTAL 0.5 ng/dL (0.2-1.0); BUN/CREATININE RATIO 8.1 (6.0-28.6); CALCIUM 9.1 mg/dL (8.5-10.1); CREATININE, SERUM 0.74 mg/dL (0.55-1.02); POTASSIUM 3.3 mmol/L (3.5-5.1); PROTEIN, TOTAL 8.8 g/dL (6.4-8.2)
[2024-05-13] MEDS ORDERED: DOXYCYCLINE HYCLATE 100 MG CAP PO ONE (16:15)
[2024-05-13] MEDS ORDERED: HYDROCODONE/ACETA 5/325 TAB PO ONE (16:15)
[2024-05-13] MEDS ORDERED: CEFTRIAXONE SOD 500 MG VIAL IM ONE (16:15)
[2024-05-13] MEDS ORDERED: ONDANSETRON 4 MG TAB ODT SL ONE (16:15)
[2024-05-13] MEDS ORDERED: levonorgestreL 1.5 MG TAB PO ONE (16:45)
[2024-05-13] MEDS ORDERED: HYDROCODON-ACE1 EA10 PO (17:47)
[2024-05-13] MEDS ORDERED: ONDANSETRON ODT4 MG PO (17:47)
[2024-05-13] MEDS ORDERED: DOXYCYCLINE HY100 MG PO (17:47)
[2024-05-13] MEDS ORDERED: METRONIDAZOLE500 MG PO (17:47)
[2024-05-13 18:00] VITALS: BP 132/75
[2024-05-15 08:36] LABS: HEPATITIS B SURFACE ANTIBODY 7.98 IU/L (())
[2024-05-15 11:10] LABS: HEPATITIS BE ANTIBODY Negative (Negative)
== END 2024-05-13 19:01 | disposition home or self-care (01) ==
LOC: ED 13:10
PROVIDERS: Emergency Medicine
DX: T74.21XA Adult sexual abuse, confirmed, initial encounter (principal); F17.200 Nicotine dependence, unspecified, uncomplicated; Z88.8 Allergy status to other drugs, medicaments and biological substances
CPT/HCPCS: 36415; 80053; 84703; 85025; 86706; 86707; 96372; 99284; A9270; J0696